=== PATIENT | female | born 1990 | race American Indian/Alaskan Native ===

== ENCOUNTER 2020-02-13 12:49 | Outpatient (CLI) | payer MEDICAID ==
[2020-02-13 13:09] VITALS: BP 134/70
--- NOTE | 2020-02-13 17:52 | Ultrasound Report ---
ULTRASOUND OBSTETRIC LIMITED ULTRASOUND BIOPHYSICAL PROFILE INDICATION / CLINICAL INFORMATION: EGA/EDC, EFW, location and integrity placenta, RENÉ. COMPARISON: None available. FINDINGS: BREATHING MOVEMENT = 0 GROSS BODY MOVEMENT = 2 TONE = 2 QUALITATIVE AMNIOTIC FLUID VOLUME = 2 TOTAL BIOPHYSICAL SCORE = 6/8 AMNIOTIC FLUID INDEX (cm) = 11.0 PRESENTATION: Cephalic. HEART RATE (beats per minute): 120 ADDITIONAL FINDINGS: Average ultrasound age 38 weeks 0 days Estimated weight 3583 g Cervical length could not be obtained secondary to baby's position IMPRESSION: 1. Biophysical Score = 6/8 Signer Name: Filipe Gonzales MD Signed: 02/13/2020 5:47 PM Workstation Name: [id number]
== END 2020-02-13 18:26 | disposition home or self-care (01) ==
LOC: TRG 12:49 → APU 12:50 → TRG 18:26
PROVIDERS: ATTEND Obstetrics & Gynecology
DX: O47.1 False labor at or after 37 completed weeks of gestation (principal); Z3A.40 40 weeks gestation of pregnancy
CPT/HCPCS: 76816; 76819; Q0177

== ENCOUNTER 2020-02-13 22:43 | Inpatient (IN) | payer MEDICAID ==
[2020-02-13] MEDS ORDERED: ACETAMINOPHEN 325 MG TAB PO PRN (22:52)
[2020-02-13] MEDS ORDERED: fentaNYL 100 MCG/2 ML INJ IV PRN (22:52)
[2020-02-13] MEDS ORDERED: LIDOCAINE (2%) 20 MG/1 ML VIAL 20 ML MDV INFILTRATI ONE (22:52)
[2020-02-13] MEDS ORDERED: ePHEDrine SULFATE 50 MG/1 ML INJ IV PRN (22:52)
[2020-02-13] MEDS ORDERED: AMPICILLIN/NS 2 GM/100 ML 2 GM/100 ML BAG IV ONE (22:52)
[2020-02-13] MEDS ORDERED: MINERAL OIL 30 ML ORAL LIQD PO PRN (22:52)
[2020-02-13] MEDS ORDERED: TERBUTALINE 1 MG/1 ML INJ SUB-Q PRN (22:52)
[2020-02-13] MEDS ORDERED: LACTATED RINGERS 1,000 ML IV SCH (23:00)
--- NOTE | 2020-02-13 23:03 | History and Physical Report ---
History of Present Illness Date of examination: 02/13/20 Date of admission: 02/13/20 22:43 Chief complaint: Contractions History of present illness: 29 year old at 40 weeks, 1 day gestation complains of regular contractions. Denies LOF or VB. Patient receives care by Dr. Mayes at [facility]; no records are available. Patient states her EDC in 02/12/2020. Patient denies complications during this . labs have been drawn upon admission. Past History Past Medical History: other (obesity) Past Surgical History: no surgical history [employer] History: denies: chlamydia, gonorrhea, hepatitis B, hepatitis C, herpes, HIV, syphilis, trichomonas Family/Genetic History: none Social history: lives with family, full code. denies: smoking, alcohol abuse, prescription drug abuse, IV drug use - Obstetrical History Expected Date of Delivery: 02/12/20 Actual Gestation: 40 Week(s) 1 Day(s) : 1 Para: 0 Hx # Term Pregnancies: 0 Number of Pregnancies: 0 Spontaneous Abortions: 0 Induced : 0 Number of Living Children: 0 Medications and Allergies Allergies Allergy/AdvReac Type Severity Reaction Status Date / Time No Known Allergies Allergy Unverified 02/13/20 13:23 Active Meds: Active Medications Acetaminophen (Tylenol) 650 mg PO Q4H PRN PRN Reason: Pain, Mild (1-3) Ephedrine Sulfate (Ephedrine Sulfate) 10 mg IV Q2M PRN PRN Reason: Hypotension Fentanyl (Sublimaze) 100 mcg IV Q2H PRN PRN Reason: Pain,Severe (7-10) LABOR PAIN Lactated Ringer's (Lactated Ringers) 1,000 mls @ 125 mls/hr IV DIRECT CRESENCIO Oxytocin/Sodium Chloride (Pitocin/Ns 20 Unit/1000ml Drip) 20 units in 1,000 mls @ 125 mls/hr IV DIRECT CRESENCIO Ampicillin Sodium (Ampicillin/Ns 2 Gm/100 Ml) 2 gm in 100 mls @ 100 mls/hr IV ONCE ONE; Protocol Stop: 02/13/20 23:51 Lidocaine (Xylocaine 2%) 20 ml INFILTRATI ONCE ONE Stop: 02/13/20 22:53 Mineral Oil (Mineral Oil) 30 ml PO QHS PRN PRN Reason: Constipation Terbutaline Sulfate (Brethine) 0.25 mg SUB-Q ONCE PRN PRN Reason: Hyperstimulation/Hypertonicity Review of Systems All systems: negative (contractions) - Physical Exam Abdomen: Positive: normal appearance, soft. Negative: distention, rigidity Genitourinary (Female): Positive: normal external genitalia, normal perenium. Negative: perineal/vulvar lesions Vagina: Positive: normal moisture Uterus: Positive: enlarged. Negative: tender Anus/Rectum: Positive: normal perianal skin Extremities: Positive: normal. Negative: tenderness, edema - Obstetrical FHR: category 1 Uterine Contraction Monitor Mode: External Cervical Dilatation: 6 Cervical Effacement Percentage: 100 (BBOW) station: -1 Uterine Contraction Pattern: Regular Uterine Contraction Intensity: Moderate Results All other labs normal. Assessment and Plan A: at 40 weeks, 1 day gestation. Active labor. GBS unknown. No records available. P: Admit. EFM. GBS prophylaxis. Obtain records. Draw labs. Epidural if desired.
[2020-02-13 23:41] LABS: Hematocrit 39.3 % (30.3-42.9); Hemoglobin 13.4 gm/dl (10.1-14.3); Mean Corpuscular HGB Conc 34 % (30-34); Mean Corpuscular Volume 89 fl (79-97); Platelet Count 258 K/mm3 (140-440); Red Blood Count 4.43 M/mm3 (3.65-5.03); Red Cell Distribution Width 15.1 % (13.2-15.2)
[2020-02-14 00:08] LABS: Hepatitis C Virus Antibody Non-Reactive (NonReactive)
--- NOTE | 2020-02-14 01:31 | Event Note ---
Date: 02/14/20 SROM at 01:19 with meconium stained amniotic fluid. SVE 8/100/0. Deep variable FHR decelerations noted with SROM. Patient positioned in left lateral position and oxygen applied per face mask. FHR now 125 with moderate variability and no decelerations noted.
[2020-02-14] MEDS ORDERED: AMPICILLIN/NS 1 GM/50 ML 1 GM/50 ML BAG IV SCH (02:57)
[2020-02-14] MEDS ORDERED: LIDOCAINE (2%) 20 MG/1 ML VIAL 20 ML MDV INFILTRATI ONE (03:04)
[2020-02-14] MEDS: OXYTOCIN 20 UNIT/1000ML DRIP 20 UNITS/1,000 ML BAG IV SCH ×2 (03:17→04:20)
--- NOTE | 2020-02-14 03:36 | Event Note ---
Date: 02/14/20 Patient was completely dilated with strong urge to push at 02:01. Several deep variable FHR decelerations were noted with moderate FHR variability and normal FHR baseline. Called Dr. Villalpando at 02:05 and requested that he come in and expedite delivery due to variable FHR decelerations with slow return to baseline. Oxygen was applied per face mask and patient was positioned in lateral position and then hands and knees position. Patient had very strong urge to push and pushed intermittently while awaiting Dr. Villalpando's arrival. Dr. Villalpando arrived at approximately 02:45 and at that time management of patient was turned over to Dr. Villalpando who performed the delivery.
--- NOTE | 2020-02-14 03:54 | Procedure Note ---
OB Delivery Note - Delivery Date of Delivery: 02/14/20 Surgeon: ESTHER GRIER JR Crisis Intervention Specialist: ARIES ROLAND Estimated blood loss: 500cc - Vaginal Delivery presentation: vertex Delivery position: OA Intrapartum events: meconium, mult.variable deceleratio Delivery induction: none Delivery monitor: external FHT, external uterine Route of delivery: other (failed vacuum extraction) Indicators for instrumentation: nonreassuring FHR tracing Delivery placenta: spontaneous Episiotomy: mediolateral Delivery laceration: 2nd degree Delivery repair: chromic Anesthesia: local Delivery comments: with failed vacuum extraction x 3 attempted (for recurrent variable decels), s/p mediolateral episotomy with Ritgens manuever with deliver to OA, 4034g 8/9 APGARS to , EBL 500 cc - Infant A at 1 minute: 8 at 5 minutes: 9 Infant Gender: Female
[2020-02-14] MEDS ORDERED: PROMETHAZINE 25 MG TAB PO PRN (03:55)
[2020-02-14] MEDS ORDERED: PROMETHAZINE 25 MG RECT SUPP PR PRN (03:55)
[2020-02-14] MEDS ORDERED: LANOLIN/ZINC/DIMETHICONE (LANSINOH) 7 GM TP PRN (03:55)
[2020-02-14] MEDS ORDERED: diphenhydrAMINE 25 MG CAP PO PRN (03:55)
[2020-02-14] MEDS ORDERED: ONDANSETRON 4 MG/2 ML INJ IV PRN (03:55)
[2020-02-14] MEDS ORDERED: ACETAMINOPHEN 325 MG TAB PO PRN (03:55)
[2020-02-14] MEDS ORDERED: WITCH HAZEL/ GLYCERIN PAD TP PRN (03:55)
[2020-02-14] MEDS ORDERED: MAGNESIUM HYDROXIDE (MOM) ORAL LIQD UDC PO PRN (03:55)
[2020-02-14] MEDS: IBUPROFEN 600 MG TAB PO SCH ×3 (12:27→16:31)
[2020-02-14 15:36] LABS: Hematocrit 30.6 % (30.3-42.9)
[2020-02-15] MEDS: oxyCODONE /ACETAMINOPHEN 5-325MG TAB PO PRN (10:27)
--- NOTE | 2020-02-15 11:07 | Progress Note ---
Assessment and Plan - Patient Problems (1) Status post normal vaginal delivery Current Visit: Yes Status: Acute Plan to address problem: Continue routine PP orders Anticipate d/c home tomorrow F/U at office in 6 wks for routine PP visit (2) Anemia Current Visit: Yes Status: Acute Qualifiers: Anemia type: other cause Other causes of anemia: acute posthemorrhagic Qualified Code(s): D62 - Acute posthemorrhagic anemia Plan to address problem: Asymptomatic Increase iron rich foods into diet Subjective - Subjective Date of service: 02/15/20 Principal diagnosis: S/P ; PPD#1 Interval history: See admission H & P; OB delivery summary and PP progress notes Patient reports: appetite normal, voiding normally, pain well controlled, flatus, ambulating normally [place]: in NICU Objective - Vital Signs Latest vital signs: Vital Signs Temp Pulse Resp BP BP Pulse Ox 02/15/20 08:03 98.0 F 69 20 93/50 98 02/15/20 04:30 98.8 F 67 18 119/78 02/15/20 00:00 98.6 F 68 16 131/74 02/14/20 20:40 98.0 F 77 18 98/47 100 02/14/20 16:44 98.4 F 72 18 107/60 99 02/14/20 16:23 20 02/14/20 12:27 20 Intake and Output 02/14/20 02/15/20 02/15/20 23:59 07:59 15:59 Intake Total 1620 120 Balance 1620 120 Intake: Oral 840 120 Intake, Free Water 780 Other: Total, Intake Amount 840 120 # Voids Void 1 1 - Exam Breasts: Present: normal Cardiovascular: Present: Regular rate Lungs: Present: Normal air movement Abdomen: Present: soft Uterus: Present: firm, fundal height below umbilicus (U-2) Deep Tendon Reflex Grade: Normal +2 Incision: Present: other (ML episiotomy site, healing as directed) - Labs Labs: Abnormal lab results 02/14/20 Range/Units 14:54 Hgb 10.0 L D (10.1-14.3) gm/dl
--- NOTE | 2020-02-15 11:10 | Discharge Summary ---
Providers - Providers Date of Admission: 02/13/20 22:43 Date of discharge: 02/16/20 (0900) Attending physician: ESTHER GRIER JR, MD Primary care physician: ESTHER GRIER JR, MD Hospitalization Reason for admission: active labor Delivery: Episiotomy: midline (healing as expected) Laceration: 2nd degree Other procedures: none complications: none Discharge diagnosis: IUP at term delivered, other (anemia) baby: male Hospital course: See admission H & P; OB delivery summary and PP progress notes Condition at discharge: Stable Disposition: DC-01 TO HOME OR SELFCARE - Discharge Diagnoses (1) Status post normal vaginal delivery Status: Acute (2) Anemia Status: Acute Qualifiers: Anemia type: other cause Other causes of anemia: acute posthemorrhagic Qualified Code(s): D62 - Acute posthemorrhagic anemia Plan - Provider Discharge Summary Activity: routine, no sex for 6 weeks, no heavy lifting 4 weeks, no strenuous exercise Diet: other (Iron rich diet) Instructions: routine Additional instructions: [] Smoking cessation referral if applicable(refer to patient education folder for contact #) [] Refer to [facility] Booklet Call your doctor immediately for: * Fever > 100.5 * Heavy vaginal bleeding ( >1 pad per hour) * Severe persistent headache * Shortness of breath * Reddened, hot, painful area to leg or breast * Drainage or odor from incision. * Keep episiotomy site clean and dry at all times and follow doctor's instructions regarding bathing/showering - Follow up plan Follow up: ESTHER GRIER JR, MD [Primary Care Provider] - 6 Weeks
[2020-02-15] MEDS: IBUPROFEN 600 MG TAB PO SCH (18:46)
[2020-02-16] MEDS: oxyCODONE /ACETAMINOPHEN 5-325MG TAB PO PRN (04:37)
[2020-02-16 14:12] VITALS: BP 107/64
== END 2020-02-16 13:00 | disposition home or self-care (01) | DRG 775 ==
LOC: APU 22:43 → LD 23:48 → OB 02-14 06:44
PROVIDERS: ADMIT Obstetrics & Gynecology; ATTEND Obstetrics & Gynecology
PROC: 10E0XZZ Delivery of Products of Conception, External Approach (ICD-10-PCS; principal; 2020-02-14)
PROC: 0KQM0ZZ Repair Perineum Muscle, Open Approach (ICD-10-PCS; 2020-02-14)
PROC: 0W8NXZZ Division of Female Perineum, External Approach (ICD-10-PCS; 2020-02-14)
DX: O77.0 Labor and delivery complicated by meconium in amniotic fluid (principal); O42.92 Full-term premature rupture of membranes, unspecified as to length of time between rupture and onset of labor; O66.5 Attempted application of vacuum extractor and forceps; D62 Acute posthemorrhagic anemia; Z37.0 Single live birth; Z3A.40 40 weeks gestation of pregnancy; O99.214 Obesity complicating childbirth; E66.9 Obesity, unspecified; O90.81 Anemia of the puerperium; O76 Abnormality in fetal heart rate and rhythm complicating labor and delivery; O70.1 Second degree perineal laceration during delivery
CPT/HCPCS: 36415; 59025; 76816; 76819; 83036; 85014; 85018; 85027; 86592; 86706; 86762; 86803; 86850; 86900; 86901; 87806; G0378; J0290; J2590; J3010; J7120; Q0177

== ENCOUNTER 2021-03-24 02:32 | Emergency (ER) | payer MEDICAID ==
[2021-03-24 02:44] VITALS: BP 116/56
--- NOTE | 2021-03-24 02:53 | Emergency Department Report ---
Chief Complaint: Extremity Injury, Lower Stated Complaint: POSS SPRAIN ANKLE PAIN X2WKS Time Seen by Provider: 03/24/21 02:46 - HPI History of Present Illness: 30-year-old female patient presents to emergency department with complaints of intermittent nontraumatic right ankle pain for 2 weeks. No preceding fall or injury. Symptoms are unchanged tonight. Patient has not taken any medication for this issue. She has not consulted a primary care provider regarding this issue. She has not worn any type of compression devices since symptoms began. When asked what prompted her to come to the emergency department tonight, patient replied "work." No history of prior injuries to the right ankle. Denies hip pain, knee pain, foot pain, paresthesias, numbness, weakness. Denies all other complaints at this time. - ROS Review of Systems: GENERAL: Negative for fever. CARDIOVASCULAR: Negative for chest pain. PULMONARY: Negative for shortness of breath. GASTROINTESTINAL: Negative for abdominal pain. MUSCULOSKELETAL: Positive for ankle pain. NEUROLOGICAL: Negative for headache. INTEGUMENTARY: Negative for rash. - Exam Vital Signs: Vital Signs 03/24/21 02:38 Temperature 98.6 F Pulse Rate 72 Respiratory 18 Rate Blood Pressure 116/56 O2 Sat by Pulse 99 Oximetry Physical Exam: General: Awake, appropriately interactive, no acute distress. Neck: Supple. Full range of motion intact. Cardiovascular: Normal peripheral perfusion. Pulmonary: No respiratory distress. Patient is speaking normally without use of accessory muscles. Skin: No apparent rashes or lesions. Neurological: No facial asymmetry. Speech is clear. Follows commands. Patient is alert and oriented. Musculoskeletal: Patient reports intermittent pain to the lateral right ankle without reproducible tenderness, no obvious deformity or dislocation, no plantar ecchymosis, full range of motion intact, ambulatory without assistance, distal neurovascular motor/sensory function intact. Psych: Cooperative. Appropriate mood and affect. MSE screening note: Focused history and physical exam performed. Due to findings the following was ordered: ED Medical Decision Making - Medical Decision Making Patient presents to the emergency department with complaints of intermittent nontraumatic right ankle pain for 2 weeks. Physical exam is unremarkable. She is afebrile, hemodynamically stable, neurovascularly intact, ambulatory with out assistance, no distress. No clinical indication for emergent diagnostic evaluation. Recommended Deandre wrap and activity modification as tolerated. Discharged home in stable condition with referral to primary care provider. BILLING/CODING: This patient encounter does not represent a certified medical emergency. ED Disposition for MSE Clinical Impression: Encounter for medical screening examination Disposition: HOME / SELF CARE / HOMELESS Is pt being admited?: No Does the pt Need Aspirin: No Condition: Stable Instructions: Medical Screening Exam Additional Instructions: Take Tylenol every 4 hours and Motrin every 8 hours as needed for pain. Wear Deandre wrap as needed. Wear shoes with adequate support. Gradually advance physical activity slowly as tolerated. Follow-up with primary care provider this week. Call Friday to schedule an appointment. See referral information below. Return to the emergency department immediately for new or worsening symptoms. Referrals: PRECIOUS CALDERON MD [Staff Physician] - 3-5 Days [facility] [Provider Group] - 3-5 Days Time of Disposition: 02:53
== END 2021-03-24 03:50 | disposition home or self-care (01) ==
LOC: ED 02:32
DX: M25.571 Pain in right ankle and joints of right foot (principal); Z00.00 Encounter for general adult medical examination without abnormal findings
CPT/HCPCS: 99281; 99282